=== PATIENT | male | born 1950 | race Asian ===

== ENCOUNTER 2020-11-26 08:33 | Day surgery (SDC) | payer BC, OTHER, SELFPAY ==
[~2020-11-26] VITALS: Ht 167.6 cm; Wt 61.2 kg
[2020-11-26] MEDS ORDERED: fentaNYL CITRATE/PF 100 MCG/2 ML AMP ONE (09:32)
[2020-11-26] MEDS ORDERED: MIDAZOLAM HCL 5 MG/5 ML VIAL ONE (09:32)
[2020-11-26] MEDS ORDERED: SIMETHICONE 40 MG/0.6 ML ML ONE (09:34)
[2020-11-26] MEDS ORDERED: BENZOCAINE 20% 0.5mL UD SPRAY MM ONE (09:34)
[2020-11-26 13:06] VITALS: BP_SYST 131
== END 2020-11-26 10:55 | disposition home or self-care (01) ==
LOC: SDS 08:33 → SMU 08:34 → SDS 10:55
PROVIDERS: ATTEND Internal Medicine
DX: R19.4 Change in bowel habit (principal); K92.1 Melena; K64.8 Other hemorrhoids; Z79.899 Other long term (current) drug therapy
CPT/HCPCS: 36415 ×2; 43239; 45380; 45381; 87081; 87426; 88305; 88312; 88313; 99152; 99153; G0378; J2250; J3010